=== PATIENT | male | born 1940 | race Caucasian/White ===

== ENCOUNTER 2021-01-04 13:22 | Inpatient (IN) ==
[2021-01-04 14:34] LABS: Mean Platelet Volume 10.3 fL (9.4-12.4)
[2021-01-04 14:36] LABS: Hematocrit 49.3 % (37.5-50.1); Mean Corpuscular HGB Conc 28.4 g/dL (31.6-35.5); Mean Corpuscular Volume 102.1 fL (83.0-100.0); Platelet Count 249 K/mcL (140-400); Red Blood Count 4.83 M/mcL (4.19-5.50); Red Cell Distribution Width 16.2 % (11.5-14.5)
[2021-01-04 14:39] LABS: VBG HCO3 40 mEq/L (21-27); VBG PCO2 93 mmHg (41-51); VBG PH 7.24 pH Units (7.32-7.42); VBG PO2 60 mmHg (25-50)
[2021-01-04 14:41] LABS: Prothrombin Time 11.5 Seconds (9.4-12.1)
[2021-01-04 14:43] LABS: Activated Partial Thrombo Time 32.8 Seconds (26.0-36.0); White Blood Count 63.9 K/mcL (4.3-11.1)
[2021-01-04 14:57] LABS: Alanine Aminotransferase 7 Units/L (7-52); Albumin 3.9 g/dL (3.5-5.7); Albumin/Globulin Ratio 1.3 (1.1-2.2); Alkaline Phosphatase 56 Units/L (34-104); Aspartate Amino Transferase 12 Units/L (13-39); BUN/Creatinine Ratio 33 (6-26); Bilirubin,Direct 0.1 mg/dL (0.0-0.2); Bilirubin,Indirect 0.4 mg/dL (0.0-1.0); Bilirubin,Total 0.5 mg/dL (0.3-1.0); Blood Urea Nitrogen 25 mg/dL (8-23); Calcium 8.8 mg/dL (8.6-10.3); Carbon Dioxide 39 mEq/L (23-29); Chloride 99 mEq/L (98-107); Ethanol < 10 mg/dL (Less than 10); Globulin 3.1 g/dL (2.4-3.5); Glucose 114 mg/dL (70-105); Osmolality,Calculated 291 (280-300); Potassium 5.2 mEq/L (3.5-5.1); Sodium 138 mEq/L (136-145); Troponin I < 0.03 ng/mL (< 0.04); eGFR For African Americans > 60 (> 60); eGFR For Non-African Americans > 60 (> 60)
[2021-01-04 15:17] LABS: Lymphocytes # 51.8 K/mcL (0.6-4.6); Monocytes # 3.2 K/mcL (0.0-1.3)
[2021-01-04 15:18] LABS: Platelet Estimate Normal (Normal); Reactive Lymphocytes Present (Not Present); Smudge Cells Present (Not Present)
[2021-01-04 15:56] LABS: Amphetamine Screen,Urine Negative ng/mL (Cutoff=1000); Barbiturate Screen,Urine Negative ng/mL (Cutoff=200); Benzodiazepines Screen,Urine Negative ng/mL (Cutoff=200); Cannabinoid Screen,Urine Negative ng/mL (Cutoff = 50); Cocaine Screen,Urine Negative ng/mL (Cutoff= 300); Opiate Screen,Urine Negative ng/mL (Cutoff=300); Phencyclidine Screen,Urine Negative ng/mL (Cutoff=25)
[2021-01-04 15:58] LABS: Bilirubin,Urine Negative (Negative); Blood,Urine Trace (Negative); Clarity,Urine Clear (Clear); Color,Urine Yellow (Yellow); Glucose,Urine (UA) Normal (Normal); Ketones,Urine Negative (Negative); Leukocyte Esterase,Urine Negative (Negative); Mucus,Urine Few per lpf (None-Few); Nitrite,Urine Negative (Negative); PH,Urine 5.5 pH Units (5.0-8.0); Protein,Urine 30 mg/dL (Neg-Trace); RBC,Urine 0-3 per hpf (0-3); Specific Gravity,Urine 1.027 (1.010-1.025); Urobilinogen,Urine Normal (Normal); WBC,Urine 0-3 per hpf (0-3)
[2021-01-04 16:58] LABS: Basophils % 0.1 %; Eosinophils % 0.1 %; Immature Granulocytes % 0.1 % (0-4); Mean Platelet Volume 10.6 fL (9.4-12.4); Segmented Neutrophils % 6.3 %
[2021-01-04 16:59] LABS: Basophils # 0.1 K/mcL (0.0-0.2); Eosinophils # 0.1 K/mcL (0.0-0.6); Hematocrit 48.5 % (37.5-50.1); Hemoglobin 13.7 g/dL (12.9-16.9); Lymphocytes % 91.8 %; Mean Corpuscular HGB Conc 28.2 g/dL (31.6-35.5); Mean Corpuscular Hemoglobin 28.5 pg (28.0-33.3); Monocytes % 1.6 %; Neutrophils # 3.9 K/mcL (1.6-8.9); Platelet Count 248 K/mcL (140-400); Red Cell Distribution Width 16.2 % (11.5-14.5)
[2021-01-04 17:01] LABS: Lymphocytes # 57.2 K/mcL (0.6-4.6)
[2021-01-04 17:05] LABS: White Blood Count 62.3 K/mcL (4.3-11.1)
[2021-01-04 17:05] LABS: VBG HCO3 43 mEq/L (21-27); VBG PCO2 104 mmHg (41-51); VBG PH 7.22 pH Units (7.32-7.42); VBG PO2 31 mmHg (25-50)
[2021-01-04] MEDS ORDERED: methylPREDNISolone 125 MG/2 ML VIAL IVP STA (17:17)
[2021-01-04] MEDS ORDERED: Ipratropium/Albuterol Neb 3 ML IH STA (17:17)
[2021-01-04] MEDS ORDERED: Azithromycin 500 MG in 0.9 % Sodium Chloride 250 ML IVPB ONE (17:24)
[2021-01-04] MEDS ORDERED: cefTRIAXone 1,000 MG in Water for inj. (sterile) 10 ML IVP ONE (17:24)
[2021-01-04 17:25] LABS: Platelet Estimate Normal (Normal)
[2021-01-04 17:27] LABS: Anisocytosis 1+ (Not Present); Reactive Lymphocytes Present (Not Present)
[2021-01-04] MEDS ORDERED: *HR* LORazepam 2 MG/ML VIAL IVP ONE (18:10)
[2021-01-04 18:42] LABS: VBG HCO3 42 mEq/L (21-27); VBG PCO2 88 mmHg (41-51); VBG PH 7.29 pH Units (7.32-7.42); VBG PO2 27 mmHg (25-50)
[2021-01-04] MEDS ORDERED: Melatonin 3 MG TABLET PO PRN (19:51)
[2021-01-04] MEDS ORDERED: Naloxone 0.4 MG/ML INJ IVP PRN (19:51)
[2021-01-04] MEDS ORDERED: Ondansetron 4 MG/2 ML VIAL IVP PRN (19:51)
[2021-01-04] MEDS ORDERED: Acetaminophen 325 MG TABLET PO PRN (19:51)
[2021-01-04 21:36] LABS: BUN/Creatinine Ratio 34 (6-26); Blood Urea Nitrogen 22 mg/dL (8-23); Calcium 8.5 mg/dL (8.6-10.3); Carbon Dioxide 37 mEq/L (23-29); Chloride 97 mEq/L (98-107); Glucose 153 mg/dL (70-105); Osmolality,Calculated 292 (280-300); Potassium 5.2 mEq/L (3.5-5.1); Sodium 138 mEq/L (136-145); eGFR For African Americans > 60 (> 60); eGFR For Non-African Americans > 60 (> 60)
[2021-01-04] MEDS ORDERED: *HR* Metoprolol 5 MG/5 ML VIAL IVP ONE ×2 (21:47→22:00)
[2021-01-04] MEDS ORDERED: 0.9 % Sodium Chloride 500 ML IVC ONE (22:09)
[2021-01-04 22:13] LABS: ABG Base Excess 5 mEq/L (-2 to 3); ABG HCO3 40 mEq/L (21-27); ABG Oxygen Saturation 94 % (95-98); ABG PCO2 126 mmHg (35-45); ABG PH 7.11 pH Units (7.32-7.45); ABG PO2 105 mmHg (85-104); ABG TCO2 44 mEq/L (20-26); Blood Gas Pressure Support 9 cm H2O
[2021-01-04] MEDS ORDERED: *HR* Dextrose 50 % in Water (Vial) 50 ML VIAL IVP PRN (22:54)
[2021-01-04] MEDS ORDERED: Dextrose Gel 15 GM/37.5 ML TUBE PO PRN ×2 (22:54)
[2021-01-04] MEDS ORDERED: D5% in Water 1,000 ML IVC PRN (22:54)
[2021-01-04] MEDS ORDERED: *HR* Metoprolol 5 MG/5 ML VIAL IVP PRN (23:21)
[2021-01-04 23:43] LABS: ABG Base Excess 5 mEq/L (-2 to 3); ABG HCO3 39 mEq/L (21-27); ABG Oxygen Saturation 96 % (95-98); ABG PCO2 115 mmHg (35-45); ABG PH 7.14 pH Units (7.32-7.45); ABG PO2 113 mmHg (85-104); ABG TCO2 42 mEq/L (20-26)
[2021-01-04] MEDS ORDERED: Heparin 25,000UNIT/250ML 1/2NS 25,000 UNIT/250 ML IV.SOLN IVC SCH (23:45)
[2021-01-04] MEDS ORDERED: *HR* Heparin 5,000 UNIT/ML VIAL IVP PRN ×2 (23:58)
[2021-01-04] MEDS ORDERED: *HR* Heparin 5,000 UNIT/ML VIAL IVP ONE (23:58)
[2021-01-05] MEDS: *HR* LORazepam 2 MG/ML VIAL IVP ONE ×2 (00:58→02:01)
[2021-01-05] MEDS: DilTIAZem 50 MG/50 ML IV.SOLN IVC SCH ×3 (01:17→06:31)
[2021-01-05] MEDS: MethylPREDNISolone 40 MG/ML VIAL IVP SCH ×3 (01:39→17:34)
[2021-01-05] MEDS: Insulin LISPRO 300 UNITS/3 ML VIAL SUBQ SCH ×5 (01:47→23:55)
[2021-01-05] MEDS ORDERED: 0.9 % Sodium Chloride 1,000 ML IVC ONE (02:03)
[2021-01-05] MEDS ORDERED: Perflutren Lipid Microsphere 1.3 ML in 0.9 % Sodium Chloride 8.7 ML IVP PRN ×2 (02:12→06:17)
[2021-01-05 02:24] LABS: Hematocrit 49.9 % (37.5-50.1); Hemoglobin 13.7 g/dL (12.9-16.9); Mean Corpuscular HGB Conc 27.5 g/dL (31.6-35.5); Mean Corpuscular Hemoglobin 28.1 pg (28.0-33.3); Mean Corpuscular Volume 102.5 fL (83.0-100.0); Mean Platelet Volume 10.3 fL (9.4-12.4); Platelet Count 247 K/mcL (140-400); Red Blood Count 4.87 M/mcL (4.19-5.50); Red Cell Distribution Width 16.4 % (11.5-14.5)
[2021-01-05 02:29] LABS: White Blood Count 67.2 K/mcL (4.3-11.1)
[2021-01-05 02:46] LABS: Alanine Aminotransferase 7 Units/L (7-52); Albumin 3.7 g/dL (3.5-5.7); Albumin/Globulin Ratio 1.2 (1.1-2.2); Alkaline Phosphatase 55 Units/L (34-104); Aspartate Amino Transferase 13 Units/L (13-39); BUN/Creatinine Ratio 29 (6-26); Bilirubin,Total 0.4 mg/dL (0.3-1.0); Blood Urea Nitrogen 26 mg/dL (8-23); Calcium 8.5 mg/dL (8.6-10.3); Carbon Dioxide 35 mEq/L (23-29); Chloride 97 mEq/L (98-107); Glucose 179 mg/dL (70-105); Osmolality,Calculated 295 (280-300); Phosphorous 4.5 mg/dL (2.7-4.5); Potassium 5.8 mEq/L (3.5-5.1); Sodium 138 mEq/L (136-145); Total Protein 6.7 g/dL (6.4-8.9); eGFR For African Americans > 60 (> 60); eGFR For Non-African Americans > 60 (> 60)
[2021-01-05 02:49] LABS: Lymphocytes # 49.7 K/mcL (0.6-4.6); Neutrophils # 17.5 K/mcL (1.6-8.9)
[2021-01-05 02:50] LABS: Anisocytosis 1+ (Not Present); Platelet Estimate Normal (Normal); Reactive Lymphocytes Present (Not Present); Smudge Cells Present (Not Present)
[2021-01-05 02:55] LABS: Thyroid Stimulating Hormone 1.321 mcIU/mL (0.340-5.600)
[2021-01-05 03:42] LABS: ABG Base Excess 5 mEq/L (-2 to 3); ABG HCO3 40 mEq/L (21-27); ABG Oxygen Saturation 96 % (95-98); ABG PCO2 123 mmHg (35-45); ABG PH 7.12 pH Units (7.32-7.45); ABG PO2 118 mmHg (85-104); ABG TCO2 44 mEq/L (20-26)
[2021-01-05] MEDS ORDERED: Norepinephrine 4 MG/254 ML IV.SOLN IVC SCH (04:30)
[2021-01-05] MEDS ORDERED: Ipratropium/Albuterol Neb 3 ML IH SCH (05:00)
[2021-01-05] MEDS ORDERED: Artificial Tears SOLN 15 ML BOTTLE BOTH EYES PRN ×2 (05:30→20:12)
[2021-01-05] MEDS: FentaNYL (PF) 1,000 MCG/100 ML IV.SOLN IVC SCH ×4 (05:33→16:15)
[2021-01-05 05:55] LABS: ABG Base Excess 7 mEq/L (-2 to 3); ABG HCO3 36 mEq/L (21-27); ABG Oxygen Saturation 99 % (95-98); ABG PCO2 65 mmHg (35-45); ABG PH 7.35 pH Units (7.32-7.45); ABG PO2 176 mmHg (85-104); ABG TCO2 38 mEq/L (20-26); Blood Gas VT 550 cc
[2021-01-05] MEDS ORDERED: *HR* Heparin 5,000 UNIT/ML VIAL SQ SCH (06:00)
[2021-01-05] MEDS ORDERED: Dextrose Gel 15 GM/37.5 ML TUBE PO PRN ×2 (06:17)
[2021-01-05] MEDS ORDERED: Ondansetron 4 MG/2 ML VIAL IVP PRN (06:17)
[2021-01-05] MEDS ORDERED: *HR* Heparin 5,000 UNIT/ML VIAL IVP PRN ×2 (06:17)
[2021-01-05] MEDS ORDERED: Naloxone 0.4 MG/ML INJ IVP PRN (06:17)
[2021-01-05] MEDS ORDERED: D5% in Water 1,000 ML IVC PRN (06:17)
[2021-01-05] MEDS ORDERED: *HR* Metoprolol 5 MG/5 ML VIAL IVP PRN (06:17)
[2021-01-05] MEDS ORDERED: Acetaminophen 325 MG TABLET PO PRN (06:17)
[2021-01-05] MEDS ORDERED: *HR* Dextrose 50 % in Water (Vial) 50 ML VIAL IVP PRN (06:17)
[2021-01-05] MEDS ORDERED: Melatonin 3 MG TABLET PO PRN (06:17)
[2021-01-05] MEDS: Norepinephrine 4 MG/254 ML IV.SOLN IVC SCH (06:32)
[2021-01-05] MEDS: Heparin 25,000UNIT/250ML 1/2NS 25,000 UNIT/250 ML IV.SOLN IVC SCH (06:32)
[2021-01-05] MEDS ORDERED: Artificial Tears SOLN 15 ML BOTTLE BOTH EYES SCH (08:00)
[2021-01-05] MEDS: cefTRIAXone 1,000 MG in Water for inj. (sterile) 10 ML IVP SCH (08:16)
[2021-01-05] MEDS ORDERED: Chlorhexidine Rinse 15 ML MOUTHWASH MM SCH (09:00)
[2021-01-05] MEDS ORDERED: cefTRIAXone 1,000 MG in Water for inj. (sterile) 10 ML IVP SCH (09:00)
[2021-01-05] MEDS: Ipratropium/Albuterol Neb 3 ML IH SCH ×3 (09:16→21:47)
[2021-01-05] MEDS ORDERED: Isovue-370 500 ML BOTTLE IVP ONE (09:50)
[2021-01-05] MEDS: Vancomycin 1,250 MG/262.5 ML IV.SOLN IVPB SCH ×2 (11:14→22:30)
[2021-01-05] MEDS ORDERED: MethylPREDNISolone 40 MG/ML VIAL IVP SCH (12:00)
[2021-01-05] MEDS: Azithromycin 500 MG in D5% in Water 250 ML IVPB SCH (17:35)
[2021-01-05] MEDS ORDERED: Azithromycin 500 MG in D5% in Water 250 ML IVPB SCH (18:00)
[2021-01-05] MEDS ORDERED: *HR* Etomidate 20 MG/10 ML AMPUL IVP ONE (21:00)
[2021-01-05] MEDS ORDERED: *HR* Rocuronium Bromide 50 MG/5 ML VIAL IVP ONE (21:00)
[2021-01-05] MEDS ORDERED: *HR* Midazolam HCl 2 MG/2 ML VIAL IVP ONE (21:00)
[2021-01-05] MEDS ORDERED: *HR* Midazolam HCl 5 MG/5 ML VIAL IVP ONE (21:00)
[2021-01-05] MEDS: Artificial Tears SOLN 15 ML BOTTLE BOTH EYES SCH (23:55)
[2021-01-06] MEDS: Artificial Tears SOLN 15 ML BOTTLE BOTH EYES SCH ×2 (03:00→07:47)
[2021-01-06] MEDS: FentaNYL (PF) 1,000 MCG/100 ML IV.SOLN IVC SCH (03:10)
[2021-01-06] MEDS: Ipratropium/Albuterol Neb 3 ML IH SCH ×4 (03:20→23:17)
[2021-01-06 03:30] LABS: ABG Base Excess 5 mEq/L (-2 to 3); ABG HCO3 29 mEq/L (21-27); ABG Oxygen Saturation 89 % (95-98); ABG PCO2 40 mmHg (35-45); ABG PH 7.46 pH Units (7.32-7.45); ABG PO2 53 mmHg (85-104); ABG TCO2 30 mEq/L (20-26); Blood Gas Modality ASSIST CONTROL; Blood Gas VT 550 cc
[2021-01-06 03:59] LABS: VBG Ionized Calcium 1.05 mmol/L (1.15-1.35)
[2021-01-06 04:32] LABS: BUN/Creatinine Ratio 37 (6-26); Blood Urea Nitrogen 29 mg/dL (8-23); Calcium 8.1 mg/dL (8.6-10.3); Carbon Dioxide 29 mEq/L (23-29); Chloride 100 mEq/L (98-107); Glucose 185 mg/dL (70-105); Magnesium 2.1 mg/dL (1.6-2.6); Osmolality,Calculated 295 (280-300); Sodium 137 mEq/L (136-145); eGFR For African Americans > 60 (> 60); eGFR For Non-African Americans > 60 (> 60)
[2021-01-06] MEDS: MethylPREDNISolone 40 MG/ML VIAL IVP SCH (06:04)
[2021-01-06] MEDS: Insulin LISPRO 300 UNITS/3 ML VIAL SUBQ SCH ×2 (06:05→11:45)
[2021-01-06] MEDS: DilTIAZem 50 MG/50 ML IV.SOLN IVC SCH (06:05)
[2021-01-06] MEDS: Norepinephrine 4 MG/254 ML IV.SOLN IVC SCH (06:05)
[2021-01-06 06:33] LABS: Immature Granulocytes % 0.1 % (0-4)
[2021-01-06 06:35] LABS: Basophils # 0.1 K/mcL (0.0-0.2); Basophils % 0.2 %; Hematocrit 40.4 % (37.5-50.1); Hemoglobin 12.4 g/dL (12.9-16.9); Lymphocytes # 43.3 K/mcL (0.6-4.6); Lymphocytes % 88.2 %; Mean Corpuscular HGB Conc 30.7 g/dL (31.6-35.5); Mean Corpuscular Volume 91.2 fL (83.0-100.0); Mean Platelet Volume 10.8 fL (9.4-12.4); Monocytes # 0.6 K/mcL (0.0-1.3); Monocytes % 1.3 %; Nucleated Red Blood Cells 0.1 /100 WBC (0); Platelet Count 229 K/mcL (140-400); Red Blood Count 4.43 M/mcL (4.19-5.50); Segmented Neutrophils % 10.2 %
[2021-01-06 06:44] LABS: White Blood Count 49.1 K/mcL (4.3-11.1)
[2021-01-06 07:15] LABS: Anisocytosis 1+ (Not Present); Platelet Estimate Normal (Normal); Reactive Lymphocytes Present (Not Present); Smudge Cells Present (Not Present)
[2021-01-06] MEDS: cefTRIAXone 1,000 MG in Water for inj. (sterile) 10 ML IVP SCH (07:46)
[2021-01-06] MEDS: Calcium Gluconate 1gm/50mL 1 GM/50 ML BAG IVPB SCH ×2 (10:33→11:07)
[2021-01-06] MEDS: Heparin 25,000UNIT/250ML 1/2NS 25,000 UNIT/250 ML IV.SOLN IVC SCH (12:10)
[2021-01-06] MEDS: Azithromycin 500 MG in D5% in Water 250 ML IVPB SCH (16:57)
[2021-01-06] MEDS ORDERED: D5% in Water 1,000 ML IVC PRN (17:58)
[2021-01-06] MEDS ORDERED: Dextrose Gel 15 GM/37.5 ML TUBE PO PRN ×2 (17:58)
[2021-01-06] MEDS ORDERED: *HR* Dextrose 50 % in Water (Vial) 50 ML VIAL IVP PRN (17:58)
[2021-01-06] MEDS ORDERED: Insulin LISPRO 300 UNITS/3 ML VIAL SUBQ SCH (21:00)
[2021-01-07] MEDS: Ipratropium/Albuterol Neb 3 ML IH SCH ×4 (03:27→21:42)
[2021-01-07] MEDS: DilTIAZem 50 MG/50 ML IV.SOLN IVC SCH (03:46)
[2021-01-07 03:48] LABS: Mean Platelet Volume 10.6 fL (9.4-12.4)
[2021-01-07 03:49] LABS: Basophils # 0.2 K/mcL (0.0-0.2); Basophils % 0.3 %; Hematocrit 42.6 % (37.5-50.1); Hemoglobin 12.8 g/dL (12.9-16.9); Immature Granulocytes % 0.2 % (0-4); Lymphocytes % 86.4 %; Mean Corpuscular Hemoglobin 28.6 pg (28.0-33.3); Mean Corpuscular Volume 95.3 fL (83.0-100.0); Monocytes # 1.4 K/mcL (0.0-1.3); Monocytes % 2.4 %; Neutrophils # 6.2 K/mcL (1.6-8.9); Platelet Count 234 K/mcL (140-400); Red Blood Count 4.47 M/mcL (4.19-5.50); Segmented Neutrophils % 10.7 %
[2021-01-07 03:57] LABS: VBG Ionized Calcium 1.14 mmol/L (1.15-1.35)
[2021-01-07 04:01] LABS: White Blood Count 57.9 K/mcL (4.3-11.1)
[2021-01-07 04:07] LABS: BUN/Creatinine Ratio 36 (6-26); Blood Urea Nitrogen 25 mg/dL (8-23); Calcium 8.3 mg/dL (8.6-10.3); Carbon Dioxide 35 mEq/L (23-29); Chloride 102 mEq/L (98-107); Glucose 108 mg/dL (70-105); Magnesium 2.2 mg/dL (1.6-2.6); Osmolality,Calculated 297 (280-300); Phosphorous 4.9 mg/dL (2.7-4.5); Potassium 4.8 mEq/L (3.5-5.1); Sodium 141 mEq/L (136-145); eGFR For African Americans > 60 (> 60); eGFR For Non-African Americans > 60 (> 60)
[2021-01-07] MEDS: Heparin 25,000UNIT/250ML 1/2NS 25,000 UNIT/250 ML IV.SOLN IVC SCH ×2 (04:08→20:00)
[2021-01-07 04:33] LABS: Anisocytosis 1+ (Not Present); Platelet Estimate Normal (Normal); Reactive Lymphocytes Present (Not Present); Smudge Cells Present (Not Present)
[2021-01-07] MEDS ORDERED: Insulin LISPRO 300 UNITS/3 ML VIAL SUBQ SCH (07:30)
[2021-01-07] MEDS ORDERED: MethylPREDNISolone 40 MG/ML VIAL IVP SCH (09:00)
[2021-01-07] MEDS: cefTRIAXone 1,000 MG in Water for inj. (sterile) 10 ML IVP SCH (09:56)
[2021-01-07] MEDS ORDERED: Ondansetron 4 MG/2 ML VIAL IVP PRN (10:12)
[2021-01-07] MEDS ORDERED: Acetaminophen 325 MG TABLET PO PRN (10:12)
[2021-01-07] MEDS ORDERED: D5% in Water 1,000 ML IVC PRN (10:12)
[2021-01-07] MEDS ORDERED: Naloxone 0.4 MG/ML INJ IVP PRN (10:12)
[2021-01-07] MEDS ORDERED: Melatonin 3 MG TABLET PO PRN (10:12)
[2021-01-07] MEDS ORDERED: *HR* Dextrose 50 % in Water (Vial) 50 ML VIAL IVP PRN (10:12)
[2021-01-07] MEDS ORDERED: *HR* Heparin 5,000 UNIT/ML VIAL IVP PRN ×2 (10:12)
[2021-01-07] MEDS ORDERED: Dextrose Gel 15 GM/37.5 ML TUBE PO PRN ×2 (10:12)
[2021-01-07] MEDS ORDERED: *HR* Metoprolol 5 MG/5 ML VIAL IVP PRN (10:12)
[2021-01-07] MEDS: Insulin LISPRO 300 UNITS/3 ML VIAL SUBQ SCH ×3 (13:02→22:21)
[2021-01-07] MEDS: Azithromycin 500 MG in D5% in Water 250 ML IVPB SCH (17:50)
[2021-01-08] MEDS: Ipratropium/Albuterol Neb 3 ML IH SCH ×4 (03:52→22:13)
[2021-01-08] MEDS: Insulin LISPRO 300 UNITS/3 ML VIAL SUBQ SCH ×4 (07:58→20:42)
[2021-01-08] MEDS: Heparin 25,000UNIT/250ML 1/2NS 25,000 UNIT/250 ML IV.SOLN IVC SCH ×2 (09:36→14:48)
[2021-01-08] MEDS: cefTRIAXone 1,000 MG in Water for inj. (sterile) 10 ML IVP SCH (09:39)
[2021-01-08] MEDS: MethylPREDNISolone 40 MG/ML VIAL IVP SCH (09:39)
[2021-01-08 10:38] LABS: VBG Ionized Calcium 1.13 mmol/L (1.15-1.35)
[2021-01-08 10:40] LABS: Mean Platelet Volume 10.4 fL (9.4-12.4)
[2021-01-08 10:41] LABS: Hematocrit 45.2 % (37.5-50.1); Mean Corpuscular HGB Conc 28.8 g/dL (31.6-35.5); Mean Corpuscular Volume 97.2 fL (83.0-100.0); Platelet Count 211 K/mcL (140-400); Red Blood Count 4.65 M/mcL (4.19-5.50); Red Cell Distribution Width 16.8 % (11.5-14.5)
[2021-01-08 10:45] LABS: White Blood Count 53.3 K/mcL (4.3-11.1)
[2021-01-08 10:59] LABS: BUN/Creatinine Ratio 33 (6-26); Blood Urea Nitrogen 24 mg/dL (8-23); Calcium 8.6 mg/dL (8.6-10.3); Carbon Dioxide 35 mEq/L (23-29); Chloride 100 mEq/L (98-107); Glucose 157 mg/dL (70-105); Magnesium 2.2 mg/dL (1.6-2.6); Osmolality,Calculated 293 (280-300); Phosphorous 3.4 mg/dL (2.7-4.5); Potassium 4.8 mEq/L (3.5-5.1); Sodium 138 mEq/L (136-145); eGFR For African Americans > 60 (> 60); eGFR For Non-African Americans > 60 (> 60)
[2021-01-08 11:57] LABS: Neutrophils # 5.3 K/mcL (1.6-8.9); Platelet Estimate Normal (Normal); Reactive Lymphocytes Present (Not Present); Smudge Cells Present (Not Present)
[2021-01-08] MEDS: Azithromycin 500 MG in D5% in Water 250 ML IVPB SCH (17:39)
[2021-01-09 01:44] LABS: Immature Granulocytes % 0.1 % (0-4); Red Cell Distribution Width 16.4 % (11.5-14.5)
[2021-01-09 01:46] LABS: Basophils % 0.3 %; Hematocrit 43.5 % (37.5-50.1); Hemoglobin 12.5 g/dL (12.9-16.9); Lymphocytes # 44.6 K/mcL (0.6-4.6); Lymphocytes % 88.3 %; Mean Corpuscular HGB Conc 28.7 g/dL (31.6-35.5); Mean Corpuscular Hemoglobin 27.9 pg (28.0-33.3); Mean Corpuscular Volume 97.1 fL (83.0-100.0); Mean Platelet Volume 10.9 fL (9.4-12.4); Monocytes # 1.2 K/mcL (0.0-1.3); Monocytes % 2.4 %; Neutrophils # 4.5 K/mcL (1.6-8.9); Platelet Count 207 K/mcL (140-400); Red Blood Count 4.48 M/mcL (4.19-5.50); Segmented Neutrophils % 8.9 %
[2021-01-09 01:51] LABS: Basophils # 0.2 K/mcL (0.0-0.2); White Blood Count 50.5 K/mcL (4.3-11.1)
[2021-01-09 02:02] LABS: BUN/Creatinine Ratio 37 (6-26); Blood Urea Nitrogen 26 mg/dL (8-23); Calcium 8.4 mg/dL (8.6-10.3); Carbon Dioxide 34 mEq/L (23-29); Chloride 101 mEq/L (98-107); Glucose 129 mg/dL (70-105); Magnesium 2.2 mg/dL (1.6-2.6); Osmolality,Calculated 294 (280-300); Potassium 4.6 mEq/L (3.5-5.1); Sodium 139 mEq/L (136-145); eGFR For African Americans > 60 (> 60); eGFR For Non-African Americans > 60 (> 60)
[2021-01-09 02:05] LABS: Platelet Estimate Normal (Normal); Reactive Lymphocytes Present (Not Present); Smudge Cells Present (Not Present)
[2021-01-09] MEDS: Ipratropium/Albuterol Neb 3 ML IH SCH ×4 (03:53→22:52)
[2021-01-09] MEDS ORDERED: 0.9 % Sodium Chloride 250 ML IVC ONE (05:36)
[2021-01-09] MEDS ORDERED: 0.9 % Sodium Chloride 500 ML ONE (08:17)
[2021-01-09] MEDS ORDERED: 0.9 % Sodium Chloride 1,000 ML IVC ONE (08:22)
[2021-01-09] MEDS: Insulin LISPRO 300 UNITS/3 ML VIAL SUBQ SCH ×4 (08:23→20:41)
[2021-01-09] MEDS: cefTRIAXone 1,000 MG in Water for inj. (sterile) 10 ML IVP SCH (08:54)
[2021-01-09] MEDS: MethylPREDNISolone 40 MG/ML VIAL IVP SCH (08:55)
[2021-01-09] MEDS ORDERED: Ringers Solution, Lactated 1,000 ML IVC SCH (10:30)
[2021-01-09] MEDS ORDERED: *HR* Digoxin 0.5 MG/2 ML AMPUL IVP ONE ×3 (11:01→23:00)
[2021-01-09] MEDS: Heparin 25,000UNIT/250ML 1/2NS 25,000 UNIT/250 ML IV.SOLN IVC SCH (11:19)
[2021-01-09] MEDS ORDERED: *HR* Digoxin 0.25 MG TABLET PO ONE ×2 (17:00→23:00)
[2021-01-09] MEDS ORDERED: *HR* Metoprolol 5 MG/5 ML VIAL IVP ONE (20:54)
[2021-01-09] MEDS ORDERED: Ringers Solution, Lactated 500 ML IVC ONE (23:45)
[2021-01-10] MEDS ORDERED: Amiodarone Premix 150 MG/100 ML BAG IVPB ONE
[2021-01-10] MEDS ORDERED: Amiodarone Premix 360 MG/200 ML BAG IVC ONE (00:15)
[2021-01-10 01:20] LABS: Basophils % 0.1 %; Mean Platelet Volume 10.9 fL (9.4-12.4); Monocytes % 1.4 %
[2021-01-10 01:22] LABS: Basophils # 0.1 K/mcL (0.0-0.2); Hematocrit 42.3 % (37.5-50.1); Hemoglobin 12.7 g/dL (12.9-16.9); Immature Granulocytes % 0.1 % (0-4); Lymphocytes # 44.3 K/mcL (0.6-4.6); Lymphocytes % 88.8 %; Mean Corpuscular Hemoglobin 28.6 pg (28.0-33.3); Mean Corpuscular Volume 95.3 fL (83.0-100.0); Monocytes # 0.7 K/mcL (0.0-1.3); Neutrophils # 4.8 K/mcL (1.6-8.9); Platelet Count 210 K/mcL (140-400); Red Blood Count 4.44 M/mcL (4.19-5.50); Red Cell Distribution Width 16.5 % (11.5-14.5); Segmented Neutrophils % 9.6 %
[2021-01-10 01:27] LABS: White Blood Count 49.9 K/mcL (4.3-11.1)
[2021-01-10 01:46] LABS: BUN/Creatinine Ratio 42 (6-26); Blood Urea Nitrogen 31 mg/dL (8-23); Calcium 8.5 mg/dL (8.6-10.3); Carbon Dioxide 32 mEq/L (23-29); Chloride 100 mEq/L (98-107); Glucose 163 mg/dL (70-105); Magnesium 2.1 mg/dL (1.6-2.6); Osmolality,Calculated 292 (280-300); Potassium 5.3 mEq/L (3.5-5.1); Sodium 136 mEq/L (136-145); eGFR For African Americans > 60 (> 60); eGFR For Non-African Americans > 60 (> 60)
[2021-01-10 02:34] LABS: Platelet Estimate Normal (Normal); Reactive Lymphocytes Present (Not Present); Smudge Cells Present (Not Present)
[2021-01-10] MEDS: Ipratropium/Albuterol Neb 3 ML IH SCH ×4 (03:40→21:52)
[2021-01-10] MEDS: Amiodarone Premix 360 MG/200 ML BAG IVC SCH ×2 (06:56→19:59)
[2021-01-10] MEDS: MethylPREDNISolone 40 MG/ML VIAL IVP SCH (08:01)
[2021-01-10] MEDS: Insulin LISPRO 300 UNITS/3 ML VIAL SUBQ SCH ×4 (08:01→19:58)
[2021-01-10] MEDS: cefTRIAXone 1,000 MG in Water for inj. (sterile) 10 ML IVP SCH (08:02)
[2021-01-10] MEDS ORDERED: *HR* Digoxin 0.125 MG TABLET PO SCH (09:00)
[2021-01-10] MEDS: Heparin 25,000UNIT/250ML 1/2NS 25,000 UNIT/250 ML IV.SOLN IVC SCH (10:00)
[2021-01-10] MEDS: Apixaban 5 MG TABLET PO SCH ×2 (12:21→19:57)
[2021-01-10] MEDS ORDERED: Furosemide 20 MG/2 ML VIAL IVP ONE (16:51)
[2021-01-10] MEDS ORDERED: *HR* Digoxin 0.25 MG TABLET PO ONE (17:00)
[2021-01-11] MEDS: Ipratropium/Albuterol Neb 3 ML IH SCH ×4 (03:57→23:11)
[2021-01-11 06:42] LABS: Basophils % 0.1 %; Immature Granulocytes % 0.2 % (0-4); Lymphocytes % 87.4 %
[2021-01-11 06:44] LABS: Hematocrit 46.5 % (37.5-50.1); Hemoglobin 13.3 g/dL (12.9-16.9); Mean Corpuscular HGB Conc 28.6 g/dL (31.6-35.5); Mean Corpuscular Hemoglobin 28.2 pg (28.0-33.3); Mean Corpuscular Volume 98.5 fL (83.0-100.0); Mean Platelet Volume 11.1 fL (9.4-12.4); Monocytes # 0.8 K/mcL (0.0-1.3); Monocytes % 1.6 %; Neutrophils # 5.6 K/mcL (1.6-8.9); Platelet Count 222 K/mcL (140-400); Red Blood Count 4.72 M/mcL (4.19-5.50); Red Cell Distribution Width 16.8 % (11.5-14.5); Segmented Neutrophils % 10.7 %
[2021-01-11 06:50] LABS: Basophils # 0.1 K/mcL (0.0-0.2); Lymphocytes # 45.4 K/mcL (0.6-4.6); White Blood Count 51.9 K/mcL (4.3-11.1)
[2021-01-11 07:02] LABS: Platelet Estimate Normal (Normal); Reactive Lymphocytes Present (Not Present); Smudge Cells Present (Not Present)
[2021-01-11] MEDS: Insulin LISPRO 300 UNITS/3 ML VIAL SUBQ SCH ×4 (07:29→19:53)
[2021-01-11] MEDS: Apixaban 5 MG TABLET PO SCH ×2 (07:32→19:53)
[2021-01-11] MEDS: predniSONE 20 MG TABLET PO SCH (07:32)
[2021-01-11] MEDS: *HR* Amiodarone 200 MG TABLET PO SCH ×2 (07:32→19:53)
[2021-01-11 09:35] LABS: BUN/Creatinine Ratio 32 (6-26); Blood Urea Nitrogen 26 mg/dL (8-23); Calcium 8.7 mg/dL (8.6-10.3); Carbon Dioxide 43 mEq/L (23-29); Chloride 98 mEq/L (98-107); Glucose 122 mg/dL (70-105); Osmolality,Calculated 298 (280-300); Potassium 4.5 mEq/L (3.5-5.1); Sodium 141 mEq/L (136-145); eGFR For African Americans > 60 (> 60); eGFR For Non-African Americans > 60 (> 60)
[2021-01-11] MEDS ORDERED: polyethylene glycoL 3350 17 GM POWD.PACK PO PRN (15:47)
[2021-01-12] MEDS: Ipratropium/Albuterol Neb 3 ML IH SCH ×4 (04:10→22:54)
[2021-01-12 06:44] LABS: Red Cell Distribution Width 16.2 % (11.5-14.5)
[2021-01-12 06:46] LABS: Hematocrit 42.8 % (37.5-50.1); Hemoglobin 12.9 g/dL (12.9-16.9); Mean Corpuscular HGB Conc 30.1 g/dL (31.6-35.5); Mean Corpuscular Hemoglobin 28.7 pg (28.0-33.3); Mean Corpuscular Volume 95.1 fL (83.0-100.0); Platelet Count 210 K/mcL (140-400)
[2021-01-12 07:05] LABS: BUN/Creatinine Ratio 36 (6-26); Blood Urea Nitrogen 26 mg/dL (8-23); Calcium 8.4 mg/dL (8.6-10.3); Carbon Dioxide 41 mEq/L (23-29); Chloride 99 mEq/L (98-107); Glucose 124 mg/dL (70-105); Osmolality,Calculated 298 (280-300); Potassium 4.8 mEq/L (3.5-5.1); Sodium 141 mEq/L (136-145); eGFR For African Americans > 60 (> 60); eGFR For Non-African Americans > 60 (> 60)
[2021-01-12 08:01] LABS: Eosinophils # 0.5 K/mcL (0.0-0.6); Lymphocytes # 40.8 K/mcL (0.6-4.6); Monocytes # 0.5 K/mcL (0.0-1.3); Neutrophils # 6.2 K/mcL (1.6-8.9); Platelet Estimate Normal (Normal)
[2021-01-12 08:02] LABS: Reactive Lymphocytes Present (Not Present); Smudge Cells Present (Not Present)
[2021-01-12] MEDS: Insulin LISPRO 300 UNITS/3 ML VIAL SUBQ SCH ×3 (09:20→17:38)
[2021-01-12] MEDS: predniSONE 20 MG TABLET PO SCH (09:26)
[2021-01-12] MEDS: Apixaban 5 MG TABLET PO SCH (09:26)
[2021-01-12] MEDS: *HR* Amiodarone 200 MG TABLET PO SCH (09:26)
[2021-01-12 16:30] LABS: Adenovirus Not Detected (Not Detect); Bordetella Pertussis Not Detected (Not Detect); Chlamydophila pneumoniae Not Detected (Not Detect); Coronavirus 229E Not Detected (Not Detect); Coronavirus HKU1 Not Detected (Not Detect); Coronavirus NL63 Not Detected (Not Detect); Coronavirus OC43 Not Detected (Not Detect); Human Metapneumovirus Not Detected (Not Detect); Human Rhinovirus/Enterovirus Not Detected (Not Detect); Influenza A Subtype 2009 H1 Not Detected (Not Detect); Influenza B Not Detected (Not Detect); Mycoplasma pneumoniae Not Detected (Not Detect); Parainfluenza Virus 1 Not Detected (Not Detect); Parainfluenza Virus 2 Not Detected (Not Detect); Parainfluenza Virus 3 Not Detected (Not Detect); Parainfluenza Virus 4 Not Detected (Not Detect); Respiratory Syncytial Virus Not Detected (Not Detect); SARS-CoV-2 Not Detected (Not Detect)
[2021-01-12 16:33] VITALS: BP 111/59; PULSE 87; TEMP 97.8; O2SAT 91
== END 2021-01-12 14:32 | DRG 208 ==
LOC: EMEROOARM 13:22 → 2NENU 13:22 → ICNU 01-05 05:44 → SUATTDRO 01-07 07:39 → 3ANU 01-07 11:43 → 2NNU 01-10 00:10
PROVIDERS: ADMIT Internal Medicine; ATTEND General Practice

== ENCOUNTER 2021-02-10 13:41 | Inpatient (IN) ==
[2021-02-10 15:35] LABS: Basophils % 0.1 %; Eosinophils # 0.1 K/mcL (0.0-0.6); Eosinophils % 0.1 %; Hematocrit 42.3 % (37.5-50.1); Hemoglobin 13.3 g/dL (12.9-16.9); Immature Granulocytes % 0.1 % (0-4); Lymphocytes # 44.9 K/mcL (0.6-4.6); Lymphocytes % 86.4 %; Mean Corpuscular HGB Conc 31.4 g/dL (31.6-35.5); Mean Corpuscular Hemoglobin 29.4 pg (28.0-33.3); Mean Corpuscular Volume 93.6 fL (83.0-100.0); Mean Platelet Volume 10.1 fL (9.4-12.4); Monocytes # 0.7 K/mcL (0.0-1.3); Monocytes % 1.4 %; Neutrophils # 6.2 K/mcL (1.6-8.9); Platelet Count 243 K/mcL (140-400); Red Blood Count 4.52 M/mcL (4.19-5.50); Red Cell Distribution Width 15.5 % (11.5-14.5); Segmented Neutrophils % 11.9 %
[2021-02-10 15:44] LABS: Basophils # 0.1 K/mcL (0.0-0.2)
[2021-02-10] MEDS ORDERED: Isovue-370 500 ML BOTTLE IVP ONE (15:49)
[2021-02-10 15:51] LABS: BUN/Creatinine Ratio 24 (6-26); Blood Urea Nitrogen 21 mg/dL (8-23); Calcium 9.1 mg/dL (8.6-10.3); Carbon Dioxide 32 mEq/L (23-29); Chloride 94 mEq/L (98-107); Glucose 107 mg/dL (70-105); Osmolality,Calculated 281 (280-300); Sodium 134 mEq/L (136-145); eGFR For African Americans > 60 (> 60); eGFR For Non-African Americans > 60 (> 60)
[2021-02-10] MEDS ORDERED: 0.9 % Sodium Chloride 1,000 ML IV ONE (16:09)
[2021-02-10 16:11] LABS: Bacteria,Urine Few per hpf (None-Few); Bilirubin,Urine Negative (Negative); Blood,Urine Small (Negative); Clarity,Urine Clear (Clear); Color,Urine Yellow (Yellow); Glucose,Urine (UA) Normal (Normal); Ketones,Urine 10 mg/dL (Negative); Leukocyte Esterase,Urine Moderate (Negative); Nitrite,Urine Negative (Negative); PH,Urine 5.5 pH Units (5.0-8.0); Protein,Urine Trace mg/dL (Neg-Trace); Squamous Epithelial Cell,Urine Few per hpf (None-Few); Urobilinogen,Urine Normal (Normal)
[2021-02-10 16:12] LABS: Mucus,Urine Few per lpf (None-Few)
[2021-02-10] MEDS ORDERED: SODIUM CHLORIDE/NAHCO3/KCL/PEG 4,000 ML SOLN.RECON PO ONE (19:17)
[2021-02-10] MEDS ORDERED: Milk and Molasses Enema 200 ML RC ONE ×2 (20:11→23:48)
[2021-02-10] MEDS ORDERED: 0.9 % Sodium Chloride 1,000 ML IVC SCH (23:45)
[2021-02-10] MEDS ORDERED: Acetaminophen 325 MG TABLET PO PRN (23:47)
[2021-02-10] MEDS ORDERED: Naloxone 0.4 MG/ML INJ IVP PRN (23:47)
[2021-02-10] MEDS ORDERED: Ondansetron 4 MG/2 ML VIAL IVP PRN (23:47)
[2021-02-11] MEDS: cefTRIAXone 1,000 MG in 0.9 % Sodium Chloride Mini Bag 100 ML IVPB SCH ×2 (00:21→23:26)
[2021-02-11] MEDS ORDERED: *HR* Dextrose 50 % in Water (Vial) 50 ML VIAL IVP PRN (02:09)
[2021-02-11] MEDS ORDERED: D5% in Water 1,000 ML IVC PRN (02:09)
[2021-02-11] MEDS ORDERED: Dextrose Gel 15 GM/37.5 ML TUBE PO PRN ×2 (02:09)
[2021-02-11] MEDS: Insulin LISPRO 300 UNITS/3 ML VIAL SUBQ SCH ×3 (09:40→16:31)
[2021-02-11 11:04] LABS: Mean Platelet Volume 10.5 fL (9.4-12.4)
[2021-02-11 11:06] LABS: Hematocrit 43.4 % (37.5-50.1); Hemoglobin 13.2 g/dL (12.9-16.9); Mean Corpuscular HGB Conc 30.4 g/dL (31.6-35.5); Mean Corpuscular Hemoglobin 29.2 pg (28.0-33.3); Platelet Count 253 K/mcL (140-400); Red Blood Count 4.52 M/mcL (4.19-5.50); Red Cell Distribution Width 15.4 % (11.5-14.5)
[2021-02-11 11:12] LABS: White Blood Count 49.2 K/mcL (4.3-11.1)
[2021-02-11 11:41] LABS: Platelet Estimate Normal (Normal)
[2021-02-11 11:43] LABS: Lymphocytes # 41.3 K/mcL (0.6-4.6); Neutrophils # 5.9 K/mcL (1.6-8.9)
[2021-02-11] MEDS ORDERED: *HR* Metformin 500 MG TABLET PO SCH (17:00)
[2021-02-11] MEDS: *HR* Amiodarone 200 MG TABLET PO SCH (21:18)
[2021-02-11] MEDS: Apixaban 5 MG TABLET PO SCH (21:19)
[2021-02-11] MEDS ORDERED: CefTRIAXone 1,000 MG VIAL ONE (21:24)
[2021-02-12] MEDS: Insulin LISPRO 300 UNITS/3 ML VIAL SUBQ SCH (07:45)
[2021-02-12] MEDS ORDERED: Cholecalciferol (D-3) 1,000 UNIT (25MCG) TABLET PO SCH (09:00)
[2021-02-12] MEDS ORDERED: lisinopriL 5 MG TABLET PO SCH (09:00)
[2021-02-12] MEDS: Apixaban 5 MG TABLET PO SCH (09:54)
[2021-02-12] MEDS: *HR* Amiodarone 200 MG TABLET PO SCH (09:54)
[2021-02-12 10:41] VITALS: BP 97/60; PULSE 68; TEMP 98.3; O2SAT 93
== END 2021-02-12 13:26 | disposition home or self-care (01) | DRG 392 ==
LOC: 3ANU 13:41 → EMEROOARM 13:41 → SUATTDRO 22:45 → 3ANU 23:48
PROVIDERS: ADMIT Internal Medicine; ATTEND Internal Medicine